=== PATIENT | male | born 1985 | race Caucasian/White ===

== ENCOUNTER 2021-02-15 07:55 | Emergency (ER) | payer SELFPAY ==
[2021-02-15] MEDS ORDERED: Morphine 4 MG/ML VIAL ONE (08:32)
[2021-02-15] MEDS ORDERED: Ketorolac Tromethamine 30 MG/ML VIAL ONE (08:33)
[2021-02-15] MEDS ORDERED: Orphenadrine Citrate 60 MG/2 ML VIAL ONE (08:33)
[2021-02-15] MEDS ORDERED: Ondansetron PF 4 MG/2 ML Vial ONE (08:40)
== END 2021-02-15 10:45 | disposition home or self-care (01) ==
LOC: NAV ERS 07:55
DX: S23.41XA Sprain of ribs, initial encounter (principal); M62.830 Muscle spasm of back; X50.9XXA Other and unspecified overexertion or strenuous movements or postures, initial encounter
CPT/HCPCS: 72072; 72128; 99283; J1885; J2270; J2360; J2405

== ENCOUNTER 2021-04-28 04:09 | Emergency (ER) | payer SELFPAY ==
[2021-04-28] MEDS ORDERED: Morphine 4 MG/ML VIAL ONE (04:43)
[2021-04-28] MEDS ORDERED: Ketorolac Tromethamine 60 MG/2 ML VIAL ONE (04:43)
[2021-04-28] MEDS ORDERED: Ondansetron ODT 4 MG TAB ONE (04:46)
[2021-04-28] MEDS ORDERED: predniSONE 20 MG TAB ONE (04:55)
== END 2021-04-28 05:10 | disposition home or self-care (01) ==
LOC: NAV ERS 04:09
DX: G56.01 Carpal tunnel syndrome, right upper limb (principal)
CPT/HCPCS: 96372; 99283; J1885; J2270; J7512; Q0162

== ENCOUNTER 2021-10-01 21:07 | Emergency (ER) | payer BC, SELFPAY | END 2021-10-01 21:40 | disposition home or self-care (01) | LOC: NAV ERS 21:07 | DX: U07.1 COVID-19 (principal) | CPT/HCPCS: 99283; U0003; U0005 ==

== ENCOUNTER 2022-01-23 22:21 | Emergency (ER) | payer BC ==
[2022-01-23] MEDS ORDERED: predniSONE 20 MG TAB ONE (23:24)
== END 2022-01-23 23:32 | disposition home or self-care (01) ==
LOC: NAV ERS 22:21
DX: J20.8 Acute bronchitis due to other specified organisms (principal); B34.9 Viral infection, unspecified; F17.290 Nicotine dependence, other tobacco product, uncomplicated
CPT/HCPCS: 87804; 99283; J7512

== ENCOUNTER 2022-05-27 16:16 | Emergency (ER) | payer BC ==
[2022-05-27] MEDS ORDERED: Ketorolac Tromethamine 60 MG/2 ML VIAL ONE (16:48)
== END 2022-05-27 17:14 | disposition home or self-care (01) ==
LOC: NAV ERS 16:16
DX: M54.50 Low back pain, unspecified (principal); F17.290 Nicotine dependence, other tobacco product, uncomplicated
CPT/HCPCS: 96372; 99283; J1885